=== PATIENT | female | born 2000 | race African-American/Black ===

== ENCOUNTER 2022-05-25 06:08 | Emergency (ER) | payer MEDICAID, OTHER ==
[~2022-05-25] VITALS: Ht 154.9 cm; Wt 50.7 kg
[2022-05-25 07:09] VITALS: BP 122/77
== END 2022-05-25 07:12 | disposition home or self-care (01) ==
LOC: ER 06:08
DX: Z32.02 Encounter for pregnancy test, result negative (principal)
CPT/HCPCS: 81025; 99282